=== PATIENT | male | born 1965 | race Caucasian/White ===

== ENCOUNTER 2017-05-26 17:06 | Emergency (ER) | payer SELFPAY ==
[~2017-05-26] VITALS: Ht 193 cm; Wt 130.0 kg
[2017-05-26] MEDS ORDERED: NORCO 5-325 TA1 EACH PO (20:50)
[2017-05-26] MEDS ORDERED: KEFLEX500 M4 PO (20:50)
[2017-05-26] MEDS ORDERED: BACTRIM DS TAB1 EAC2 PO (20:50)
== END 2017-05-26 21:33 ==
LOC: EDMED 17:06
PROC: 0H98XZZ Drainage of Buttock Skin, External Approach (ICD-10-PCS; principal; 2017-05-26)
DX: L05.91 Pilonidal cyst without abscess (principal); Z88.0 Allergy status to penicillin